=== PATIENT | female | born 1985 | race American Indian/Alaskan Native ===

== ENCOUNTER 2017-05-15 15:32 | Emergency (ER) | payer OTHER ==
[2017-05-15 15:38] VITALS: RESP 16; TEMP 97.9; O2SAT 98
--- NOTE | 2017-05-15 15:49 | C.PDOC ---
History Of Present Illness 31 year old patient presents to the ED complaining of left knee strain since yesterday. Patient states she slipped on water and felt a pop in her knee. Patient denies direct injury. She complains of pain and swelling which limits movement. L KNEE STRAIN YEST. PS SLIPPED ON WATER, FELT POP IN KNEE. DENIES DIRECT INJURY. CO PAIN, SWELL LIMITED MOVEMENT EXAM OBESE EXT +SWELL L KNEE. LIMITED FULL FLEX. +BRUISING ANTERIOR. NO SUBLUX SKIN NEG Time Seen by Provider: 05/15/17 15:39 Chief Complaint (Nursing): Lower Extremity Problem/Injury History Per: Patient History/Exam Limitations: no limitations Onset/Duration Of Symptoms: Days (yesterday) Current Symptoms Are (Timing): Still Present Severity: Mild Pain Scale Rating Of: 3 Recent travel outside of the [place]: No - Knee Description Of Injury: Fell Past Medical History Reviewed: Historical Data, Nursing Documentation, Vital Signs Vital Signs: Last Vital Signs Temp 97.9 F 05/15/17 15:35 Pulse 90 05/15/17 15:35 Resp 16 05/15/17 15:35 BP 110/69 05/15/17 15:35 Pulse Ox 98 05/15/17 16:16 - Medical History PMH: Asthma Family History: States: Unknown Family Hx - Social History Hx Tobacco Use: No Hx Alcohol Use: No Hx Substance Use: No - Immunization History Hx Tetanus Toxoid Vaccination: Yes Hx Influenza Vaccination: Yes Hx Pneumococcal Vaccination: Yes Review Of Systems Except As Marked, All Systems Reviewed And Found Negative. Constitutional: Negative for: Other (head injury) Musculoskeletal: Positive for: Other (left knee pain and swelling) Neurological: Negative for: Weakness, Numbness Physical Exam - Physical Exam Appears: Non-toxic, No Acute Distress, Other (obese) Skin: Warm, Dry Head: Atraumatic, Normacephalic Cardiovascular: Rhythm Regular Extremity: No Pedal Edema, No Calf Tenderness, Capillary Refill (<2 seconds), No Deformity, Other (left knee: swelling. limited flexion. (+)bruising to the anterior aspect. no sublux) Neurological/Psych: Oriented x3, Normal Speech, Normal Cognition, Normal Motor, Normal Sensation ED Course And Treatment O2 Sat by Pulse Oximetry: 98 (room air) Pulse Ox Interpretation: Normal - Other Rad L KNEE X-Ray: Interpreted by Me (NEG) Disposition Counseled Patient/Family Regarding: Studies Performed, Diagnosis, Need For Followup, Rx Given - Disposition Referrals: [facility] [Outside] [facility] [Outside] Lakhwinder Freeman MD [Staff Provider] - Disposition: HOME/ ROUTINE Disposition Time: 16:15 Condition: IMPROVED Instructions: Knee Sprain (ED), Knee Immobilizer (ED) Forms: Work Excuse - Clinical Impression Clinical Impression: Knee sprain - Scribe Statement The provider has reviewed the documentation as recorded by the Scribe Margaret Broussard Provider Attestation: All medical record entries made by the Scribe were at my direction and personally dictated by me. I have reviewed the chart and agree that the record accurately reflects my personal performance of the history, physical exam, medical decision making, and the department course for this patient. I have also personally directed, reviewed, and agree with the discharge instructions and disposition. Orthopedic Care Application Of:: Knee Immobilizer
--- NOTE | 2017-05-15 16:21 | RAD ---
PROCEDURE: Left knee dated 05/15/2017. HISTORY: Pain. COMPARISON: None. FINDINGS: BONES: No evidence of acute displaced fracture nor dislocation. JOINTS: Joint spaces appear relatively preserved. . Questionable tiny early marginal osteophyte arising from the medial tibial plateau JOINT EFFUSION: Small suprapatellar joint effusion is felt present. OTHER FINDINGS: None. IMPRESSION: No evidence of acute displaced fracture nor dislocation. Small suprapatellar joint effusion. Probable early tiny marginal osteophyte arising from the medial tibial plateau. If symptoms persist or occult fracture suspected clinically, consider followup CT scan and or MRI
[2017-05-15 16:49] VITALS: BP 135/85; PULSE 82
== END 2017-05-15 16:48 | disposition home or self-care (01) ==
LOC: C.ER 15:32
DX: S83.92XA Sprain of unspecified site of left knee, initial encounter (principal); W01.0XXA Fall on same level from slipping, tripping and stumbling without subsequent striking against object, initial encounter